=== PATIENT | female | born 1970 | race Asian ===

== ENCOUNTER 2024-11-11 21:52 | Emergency (ER) | payer BC, SELFPAY ==
[2024-11-11 21:56] VITALS: BP 180/88
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
[2024-11-11 23:42] VITALS: BP 150/77
[2024-11-12] MEDS: MOTRIN 400 MG PO (01:28)
== END 2024-11-12 01:30 | disposition home or self-care (01) ==
LOC: EMR 21:52
PROVIDERS: EMERGENCY PHYSICIAN Emergency Medicine; FAMILY PHYSICIAN Internal Medicine
DX: M50.10 Cervical disc disorder with radiculopathy, unspecified cervical region (principal); M47.22 Other spondylosis with radiculopathy, cervical region; G93.5 Compression of brain
CPT/HCPCS: 99283